=== PATIENT | female | born 1960 | race Caucasian/White ===

== ENCOUNTER 2020-05-07 10:58 | Emergency (ER) | payer SELFPAY ==
[2020-05-07] MEDS ORDERED: NAPROXEN 250 MG TABLET PO ONE (11:30)
--- NOTE | 2020-05-07 11:37 | ER Document Report ---
ED Medical Screen (RME) - General Stated Complaint: LEFT SIDE PAIN PAIN WHEN BREATHING Time Seen by Provider: 05/07/20 11:24 - HPI Notes: 05/07/20 11:32 60-year-old female presents to emergency room today with left-sided rib pain, talking to herself, who is a poor historian and very agitated, after she states she is having "muscle spasms" after she pulled a heavy door yesterday. States she took Tylenol without relief. Patient states that she has a history of chronic pain, and she reinjured her left chest wall on [place], unable to tell me how. Denies any chest pain, reports she does have shortness of breath with her pain. Denies any nausea, vomiting, diarrhea. Reports pain is "50/5". When asking patient questions about what happened , she stated "you're pissing me off" for see me off I have greeted and performed a rapid initial assessment of this patient. A comprehensive ED assessment and evaluation of the patient, analysis of test results and completion of the medical decision making process will be conducted by additional ED providers. PHYSICAL EXAMINATION: GENERAL: Chronically ill and malnourished and in moderate distress HEAD: Atraumatic, normocephalic. CV: s1, s2 regular LUNGS: No respiratory distress Musculoskeletal: Normal range of motion. Tenderness from I have ordered additional IV fluids for sepsis protocol, I have ordered antibiotics. Intercostal rib 2 7 costal rib from anterior chest to posterior chest. No ecchymosis or step-off noted. Patient would not allow me to palpate NEUROLOGICAL: Patient talking to herself, agitated SKIN: Warm, Dry, normal turgor, no rashes or lesions noted. Unable to get a full examination while in triage due to patient's agitation as well as her pain. Patient does need to be assessed in a bed due to her pain. I will obtain a urine drug screen due to patient's unusal behavior. The patient was evaluated during a global COVID-19 pandemic and that diagnosis was suspected/considered upon their initial presentation. Their evaluation, treatment and testing was consistent with current guidelines for patients who present with complaints or symptoms and may be related to COVID-19. 05/07/20 11:33 - Related Data Allergies/Adverse Reactions: No Known Allergies Allergy (Verified 05/07/20 11:16) Past Medical History - Social History Drug Abuse: Other Physical Exam - Vital signs Vitals: Temp Pulse Resp BP Pulse Ox 99.5 F 111 H 22 H 146/81 H 97 05/07/20 11:14 05/07/20 11:14 05/07/20 11:14 05/07/20 11:14 05/07/20 11:14 Course - Vital Signs Vital signs: Temp Pulse Resp BP Pulse Ox 99.5 F 111 H 22 H 146/81 H 97 05/07/20 11:14 05/07/20 11:14 05/07/20 11:14 05/07/20 11:14 05/07/20 11:14
[2020-05-07 12:11] LABS: URINE BARBITURATES SCREEN NEGATIVE; URINE BENZODIAZEPINES SCREEN NEGATIVE; URINE COCAINE SCREEN NEGATIVE; URINE MARIJUANA (THC) SCREEN NEGATIVE; URINE METHADONE SCREEN NEGATIVE; URINE PHENCYCLIDINE SCREEN NEGATIVE
[2020-05-07] MEDS ORDERED: HYDROCODONE/ACETAMINOPHEN 5-325 MG TABLET PO ONE (12:39)
--- NOTE | 2020-05-07 12:44 | RADIOLOGY REPORT (SQ) ---
EXAM DESCRIPTION: RIBS LEFT W/PA CHEST IMAGES COMPLETED DATE/TIME: 05/07/2020 12:07 pm REASON FOR STUDY: left rib pain, no trauma COMPARISON: None. TECHNIQUE: Frontal view of the chest and additional views of the left ribs acquired. NUMBER OF VIEWS: 3 views LIMITATIONS: None. FINDINGS: FRONTAL CXR: No pneumothorax. No pleural effusion. No atelectasis or infiltrates. RIBS: No displaced rib fractures. No lytic or blastic bony lesions. OTHER: No other significant finding. IMPRESSION: NO PNEUMOTHORAX. NO DISPLACED RIB FRACTURES. COMMENT: SITE OF TRAUMA/COMPLAINT MARKED/STAMP COMPLETED: NO. TECHNICAL DOCUMENTATION: JOB ID: [id number] 2010 [employer]- All Rights Reserved Reading location - IP/workstation name: [email or web address]
[2020-05-07] MEDS ORDERED: LIDOCAINE 5% (700 MG) TRANSDERMAL ADH..PATCH TP ONE (14:30)
--- NOTE | 2020-05-07 14:33 | ER Document Report ---
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 Patient states that she pulled this muscle again yesterday pulling on a door. Patient states she has been doing a lot of exertional physical activities at work that been aggravating this rib pain. Patient denies any cough or cold symptoms. Patient denies any fever. Patient denies any nausea vomiting or diarrhea. Associated Symptoms: Other - Left lower anterior rib pain. denies: Nonproductive cough, Productive cough, Fever Exacerbated by: Movement, Deep breathing Relieved by: Remaining still Similar symptoms previously: Yes Recently seen / treated by doctor: No - ROS ROS below otherwise negative: Yes Systems Reviewed and Negative: Yes All other systems reviewed and negative - CONSTITUTIONAL Constitutional: DENIES: Fever, Chills - CARDIOVASCULAR Cardiovascular: REPORTS: Chest pain - Left lower rib pain - RESPIRATORY Respiratory: DENIES: Trouble Breathing, Coughing - GASTROINTESTINAL Gastrointestinal: DENIES: Abdominal Pain, Nausea, Patient vomiting - URINARY Urinary: DENIES: Dysuria - MUSCULOSKELETAL Musculoskeletal: DENIES: Back Pain, Neck Pain - DERM Skin Color: Normal Skin Problems: None Past Medical History - General Information source: Patient - Social History Smoking Status: Current Every Day Smoker Frequency of alcohol use: None Drug Abuse: None, Other Occupation: [employer] Family History: Reviewed & Not Pertinent - Medical History Medical History: Other - Chronic pain to the ribs Past Surgical History: Reports: Hx Section Vertical Provider Document - CONSTITUTIONAL Agree With Documented VS: Yes Exam Limitations: No Limitations General Appearance: WD/WN, No Apparent Distress - HEENT HEENT: Atraumatic, Normocephalic - NECK Neck: Normal Inspection, Supple - RESPIRATORY Respiratory: Breath Sounds Normal, No Respiratory Distress. negative: Chest Non-Tender - Left lower anterior rib tenderness with palpation and movement of trunk - CARDIOVASCULAR Cardiovascular: Regular Rate, Regular Rhythm, No Murmur - GI/ABDOMEN Gastrointestinal: Abdomen Soft, Abdomen Non-Tender, No Organomegaly - BACK Back: Normal Inspection. negative: CVA Tenderness-Right, CVA Tenderness-Left - MUSCULOSKELETAL/EXTREMETIES Musculoskeletal/Extremeties: JULIÁN ORANTES - NEURO Level of Consciousness: Awake, Alert, Appropriate Motor/Sensory: No Motor Deficit - DERM Integumentary: Warm, Dry, No Rash Course - Re-evaluation Re-evalutation: 05/07/20 14:30 Patient states that she has had chronic pain to the side of her rib cage off and on over the past 23 years. Patient states that she pulled a muscle on New Year[place] lifting turkeys and then pulled this area again yesterday lifting a heavy door. Patient feels that her symptoms are due to a muscle strain at this time and she refuses to have any lab work or EKG performed at this time. Patient states she feels that she can manage her symptoms at home. - Vital Signs Vital signs: Temp Pulse Resp BP Pulse Ox 99.5 F 111 H 22 H 146/81 H 97 05/07/20 11:14 05/07/20 11:14 05/07/20 11:14 05/07/20 11:14 05/07/20 11:14 - Laboratory Results Critical Laboratory Results Reviewed: No Critical Results - Radiology Results Critical Radiology Results Reviewed: No Critical Results Discharge - Discharge Clinical Impression: Chest wall pain Condition: Stable Disposition: HOME, SELF-CARE Instructions: Anti-Inflammatory Medication ([facility]), Chest Wall Pain ([facility]), Muscle Relaxers ([facility]) Additional Instructions: Return immediately for any new or worsening symptoms, or if you would like to have additional evaluation of your symptoms Followup with your primary care provider, call tomorrow to make a followup appointment Prescriptions: Cyclobenzaprine HCl [Flexeril 10 Mg Tablet] 10 mg PO TID #15 tablet Lidocaine [Lidoderm 5% (700 mg) Transdermal Patch] 1 patch TP DAILY PRN #10 adh..patch PRN Reason: Naproxen [Naprosyn 250 Nmg Tablet] 1 tab PO BID #14 tablet Forms: Return to Work Referrals: [facility] [Provider Group] - Follow up as needed [facility] [Provider Group] - Follow up as needed
[2020-05-07 15:29] VITALS: BP 135/92
== END 2020-05-07 15:26 | disposition home or self-care (01) ==
LOC: ER 10:58
DX: R07.89 Other chest pain (principal); R07.81 Pleurodynia; F17.200 Nicotine dependence, unspecified, uncomplicated
CPT/HCPCS: 80307; 99284